=== PATIENT | male | born 1990 | race Caucasian/White ===

== ENCOUNTER 2020-08-15 04:34 | Emergency (ER) | payer SELFPAY ==
[~2020-08-15] VITALS: Ht 177.8 cm; Wt 68.0 kg
[2020-08-15] MEDS ORDERED: BACITRACIN TOP OINT 1 UD PKG TOP ONE (05:00)
[2020-08-15] MEDS ORDERED: AMOXICILLIN/CLAVUL 875 MG TAB PO ONE (05:00)
[2020-08-15] MEDS ORDERED: TETANUS-DIPTH-ACEL PERTUSSIS 0.5ML SYR Tdap IM ONE (05:00)
[2020-08-15] MEDS ORDERED: HYDROcodone-ACET 5/325MG TAB PO ONE (05:00)
[2020-08-15] MEDS ORDERED: ONDANSETRON HCL 4 MG/2 ML VIAL IV ONE (05:30)
[2020-08-15] MEDS ORDERED: MORPHINE SULFATE 4 MG/ML SYR/VIAL IV ONE (05:30)
[2020-08-15 05:45] VITALS: BP 125/68
== END 2020-08-15 07:27 | disposition home or self-care (01) ==
LOC: ER 04:34
DX: S08.89XA Traumatic amputation of other parts of head, initial encounter (principal); S01.531A Puncture wound without foreign body of lip, initial encounter; W54.0XXA Bitten by dog, initial encounter; Y93.89 Activity, other specified; Y92.89 Other specified places as the place of occurrence of the external cause; Y99.8 Other external cause status
CPT/HCPCS: 90471; 90715; 96374; 96375; 99284; J2270; J2405